=== PATIENT | female | born 1945 | race Caucasian/White ===

== ENCOUNTER → 2020-07-20 | Day surgery (SDC) | payer OTHER ==
[~2020-07-20] VITALS: Ht 152.4 cm; Wt 64.9 kg
[~2020-07-20] MED LIST: BUPIVACAINE 0.25% INJ 50ML VIAL ONE; CALCTAB49 PO; HEPARIN SODIUM (PORCINE) 5000 UNITS/ML 1ML VIAL ONE; LIDOCAINE W/ EPINEPHRINE 1% 20ML VIAL ONE; MIDAZOLAM HCL 1MG/1ML-2 ML VIAL ONE; MULT-1018 PO; ONDANSETRON HCL 4 MG/2 ML VIAL IV PRN; PROPOFOL 10 MG/ML 20 ML IV ONE; ceFAZolin 1GM/50ML 100 ML IV ONE; ePHEDrine SULFATE 50 MG/ML AMP IV PRN; fentaNYL CITRATE 100 MCG/2 ML VL IV PRN; fentaNYL CITRATE 100 MCG/2 ML VL ONE; hydrALAZINE HCL 20 MG/ML VL IV PRN
[2020-07-20 11:45] VITALS: BP 138/47
== END | disposition home or self-care (01) ==
LOC: SUR 07:38
PROVIDERS: ATTEND Surgery
DX: R22.41 Localized swelling, mass and lump, right lower limb (principal); M19.90 Unspecified osteoarthritis, unspecified site; Z90.49 Acquired absence of other specified parts of digestive tract; D17.23 Benign lipomatous neoplasm of skin and subcutaneous tissue of right leg; Z20.828 Contact with and (suspected) exposure to other viral communicable diseases; Z98.890 Other specified postprocedural states; Z79.899 Other long term (current) drug therapy
CPT/HCPCS: 27339; 88304; J0690; J1644; J2704; J3010; J3490; U0003; J2250

== ENCOUNTER 2021-04-15 09:27 | Emergency (ER) | payer OTHER ==
[~2021-04-15] VITALS: Ht 152.4 cm; Wt 63.5 kg
[~2021-04-15 09:27] MED LIST changes: -BUPIVACAINE 0.25% INJ 50ML VIAL ONE; -HEPARIN SODIUM (PORCINE) 5000 UNITS/ML 1ML VIAL ONE; -LIDOCAINE W/ EPINEPHRINE 1% 20ML VIAL ONE; -MIDAZOLAM HCL 1MG/1ML-2 ML VIAL ONE; -ONDANSETRON HCL 4 MG/2 ML VIAL IV PRN; -PROPOFOL 10 MG/ML 20 ML IV ONE; -ceFAZolin 1GM/50ML 100 ML IV ONE; -ePHEDrine SULFATE 50 MG/ML AMP IV PRN; -fentaNYL CITRATE 100 MCG/2 ML VL IV PRN; -fentaNYL CITRATE 100 MCG/2 ML VL ONE; -hydrALAZINE HCL 20 MG/ML VL IV PRN
[2021-04-15 10:32] VITALS: BP 154/68
[2021-04-15] MEDS ORDERED: ACETAMINOPHEN 500 MG TAB PO ONE (11:00)
== END 2021-04-15 11:51 | disposition home or self-care (01) ==
LOC: ER 09:27
DX: S00.83XA Contusion of other part of head, initial encounter (principal); S50.312A Abrasion of left elbow, initial encounter; Z79.899 Other long term (current) drug therapy; W01.0XXA Fall on same level from slipping, tripping and stumbling without subsequent striking against object, initial encounter; Y93.89 Activity, other specified; Y92.89 Other specified places as the place of occurrence of the external cause; Y99.8 Other external cause status
CPT/HCPCS: 70450; 70486

== ENCOUNTER 2023-06-19 06:20 | Inpatient (IN) | payer OTHER ==
[~2023-06-19] VITALS: Ht 152.4 cm; Wt 73.2 kg
[~2023-06-19 06:20] MED LIST changes: +LOSA25TA15 PO
[2023-06-19] MEDS ORDERED: ceFAZolin 1GM/50ML 100 ML IV ONE (06:37)
[2023-06-19] MEDS ORDERED: fentaNYL CITRATE 100 MCG/2 ML VL ONE (07:09)
[2023-06-19] MEDS ORDERED: MORPHINE SULF PF 5 MG/10 ML VIAL ONE (07:09)
[2023-06-19] MEDS ORDERED: PROPOFOL 10 MG/ML 20 ML IV ONE (07:12)
[2023-06-19] MEDS ORDERED: MIDAZOLAM HCL 2MG/2ML 2ml VIAL (1mg/ml) ONE (07:14)
[2023-06-19] MEDS ORDERED: TRANEXAMIC ACID 20 ML ONE (07:30)
[2023-06-19] MEDS ORDERED: KETOROLAC TROMETH 30 MG/ML 1ML VIAL ONE (07:31)
[2023-06-19] MEDS ORDERED: ONDANSETRON HCL 4 MG/2 ML VIAL ONE (08:11)
[2023-06-19] MEDS ORDERED: MEPERIDINE HCL (50 MG/ML) 1 ML VIAL ONE ×2 (08:30→09:26)
[2023-06-19] MEDS ORDERED: ROPIVACAINE 0.5% (5MG/ML) 20ML AMPULE IJ ONE (08:30)
[2023-06-19] MEDS ORDERED: EPINEPHrine HCL 1 MG/1 ML AMP ONE (08:32)
[2023-06-19] MEDS ORDERED: hydrALAZINE HCL 20 MG/ML VL ONE (08:36)
[2023-06-19] MEDS ORDERED: VANCOMYCIN HCL 1000 MG VL ONE (08:40)
[2023-06-19] MEDS ORDERED: BUPIVACAINE 0.5% P/F INJ 10 ML VIAL ONE (09:21)
[2023-06-19] MEDS ORDERED: SODIUM CHLORIDE LOCK 10 ML ONE (09:29)
[2023-06-19] MEDS ORDERED: ACETAMINOPHEN 325 MG TAB PO PRN (10:15)
[2023-06-19] MEDS ORDERED: oxyCODONE HCL 5MG TAB PO PRN (10:15)
[2023-06-19 10:18] VITALS: O2SAT 98
[2023-06-19] MEDS ORDERED: ONDANSETRON HCL 4 MG/2 ML VIAL IV PRN (10:30)
[2023-06-19] MEDS ORDERED: MEPERIDINE HCL (25 MG/ML) 1ML VIAL IV PRN (10:30)
[2023-06-19] MEDS: HYDROmorphone HCL 2 MG/ML VL/or syr IV PRN ×2 (10:43→10:55)
[2023-06-19] MEDS ORDERED: KETOROLAC TROMETH 60MG/2ML VIAL ONE (11:13)
[2023-06-19] MEDS ORDERED: KETOROLAC TROMETH 30 MG/ML 1ML VIAL IV SCH (12:00)
[2023-06-19] MEDS: D5W/LACTATED RINGERS 1,000 ML IV SCH ×2 (12:58→21:04)
[2023-06-19] MEDS: ACETAMINOPHEN 325 MG TAB PO SCH ×2 (13:00→17:23)
[2023-06-19] MEDS: ceFAZolin 2 GM/D5W100ml 100 ML IV SCH ×2 (13:40→22:11)
[2023-06-19] MEDS: oxyCODONE HCL 5MG TAB PO PRN ×2 (16:05→22:12)
[2023-06-19 17:00] VITALS: BP 134/71; PULSE 82; RESP 18; TEMP 97.3; O2SAT 97
[2023-06-19] MEDS: KETOROLAC TROMETH 60MG/2ML VIAL IV SCH (17:23)
[2023-06-19 20:00] VITALS: BP 124/76; PULSE 82; RESP 17; TEMP 97.9; O2SAT 94
[2023-06-19 22:00] VITALS: BP 124/76; PULSE 82; RESP 17; TEMP 97.9; O2SAT 94
[2023-06-19] MEDS: PREGABALIN 25 MG CAP PO SCH (22:12)
[2023-06-20] MEDS: ACETAMINOPHEN 325 MG TAB PO SCH ×3 (00:44→12:09)
[2023-06-20] MEDS: KETOROLAC TROMETH 60MG/2ML VIAL IV SCH ×3 (00:44→12:16)
[2023-06-20] MEDS: oxyCODONE HCL 5MG TAB PO PRN ×2 (04:40→10:21)
[2023-06-20 05:00] VITALS: BP 113/57; PULSE 76; RESP 17; TEMP 97.9; O2SAT 94
[2023-06-20 06:18] LABS: Basophils # (auto) 0 10 ^3/uL (0-0.2); Basophils % (auto) 0.4 % (0.0-2.0); Eosinophils # (auto) 0.3 10 ^3/uL (0-0.8); Eosinophils % (auto) 3.8 % (0.0-7.0); Hematocrit 36.5 % (36.0-46.0); Hemoglobin 12.4 g/dL (12.2-16.2); Lymphocytes # (auto) 1.1 10 ^3/uL (0.4-5.4); Lymphocytes % (auto) 14.1 % (10.0-50.0); Mean Corpuscular Hemoglobin 30.4 pg (28.0-32.0); Mean Corpuscular Volume 89.5 fL (80.0-100.0); Monocytes # (auto) 0.7 10 ^3/uL (0-1.3); Monocytes % (auto) 8.6 % (0.0-12.0); Neutrophils # (auto) 5.9 10 ^3/uL (1.6-8.6); Neutrophils % (auto) 73.1 % (37.0-80.0); Red Blood Cells 4.07 10^6/uL (4.0-5.20); Red Cell Distribution Width 14.1 % (11.8-14.3); White Blood Cell 8.1 10^3/uL (4.4-10.8)
[2023-06-20 06:31] LABS: Chloride 105 mmol/L (98-107); Potassium 4.5 mmol/L (3.5-5.1); Sodium 138 mmol/L (136-145)
[2023-06-20 06:32] LABS: Anion Gap 4 (5-15); Calcium 8.8 mg/dL (8.5-10.1); Carbon Dioxide 29 mmol/L (20-30)
[2023-06-20 06:37] LABS: BUN/Creatinine Ratio 11.8 (10.0-20.0); Blood Urea Nitrogen 9 mg/dL (9-23); Glucose 113 mg/dL (74-106)
[2023-06-20] MEDS: D5W/LACTATED RINGERS 1,000 ML IV SCH ×2 (06:39→16:15)
[2023-06-20 09:00] VITALS: BP 122/53; PULSE 81; RESP 18; O2SAT 93
[2023-06-20] MEDS: PREGABALIN 25 MG CAP PO SCH (09:44)
[2023-06-20] MEDS ORDERED: LOSARTAN POTASSIUM 25 MG TAB PO SCH (10:00)
[2023-06-20] MEDS ORDERED: ASPirin 81 mg TAB PO SCH (10:00)
[2023-06-20 13:00] VITALS: BP 140/55; PULSE 90; RESP 18; TEMP 98; O2SAT 91
== END 2023-06-20 16:50 | disposition home or self-care (01) | DRG 470 ==
LOC: SUR 06:20 → OVERFLOW 10:17 → CENTRAL 11:51
PROVIDERS: ADMIT Orthopaedic Surgery; ATTEND Orthopaedic Surgery
PROC: 0SRC069 Replacement of Right Knee Joint with Oxidized Zirconium on Polyethylene Synthetic Substitute, Cemented, Open Approach (ICD-10-PCS; principal; 2023-06-19 07:47)
DX: M17.11 Unilateral primary osteoarthritis, right knee (principal); I10 Essential (primary) hypertension
CPT/HCPCS: 36415; 73560; 80048; 85025; 86850; 86900; 86901; 93971; 97110; 97116; 97163; 97530; G0378; J0171; J0690; J1885; J2250; J2405; J2704; J3490

== ENCOUNTER 2024-07-17 14:00 | Inpatient (IN) | payer OTHER ==
[~2024-07-17] VITALS: Ht 152.4 cm; Wt 76.6 kg
[~2024-07-17 14:00] MED LIST changes: +LOSA-533 PO; -LOSA25TA15 PO
[2024-07-18 13:19] VITALS: RESP 18
[2024-07-18 13:22] VITALS: BP 144/65; PULSE 88; RESP 20; TEMP 98.6; O2SAT 93
[2024-07-18] MEDS ORDERED: ONDANSETRON HCL 4 MG/2 ML VIAL IV PRN (14:30)
[2024-07-18] MEDS ORDERED: ACETAMINOPHEN 325 MG TAB PO PRN (14:30)
--- NOTE | 2024-07-18 16:17 | DVHHP2 ---
History of Present Illness Reason for Visit: Left knee pain status post mechanical fall found to left patellar # History of Present Illness 79-year-old female with a known history of hypertension, previous history of right total knee arthroplasty who was recently on a cruise in [place] had a mechanical fall history ER with left knee found to have left patellar fracture. Patient was hospitalized in [place] and then transferred as a direct admit. Orthopedics will be consulted. Patient was pulling of left knee pain. Denies any fevers does not any known cardiac history . Cardiovascular: HTN Past Surgical History: Total knee replacement (Right side) Smoke: Quit ALCOHOL: none Drugs: None Domestic Violence: Neg Review of Systems Review of Systems 12 review of system were negative except mentioned above. Allergies: Coded Allergies: NO KNOWN ALLERGIES (Unverified , 07/14/20) Medications Current Medications Medications Dose Ordered Sig/Maggi Route Start Time Stop Time Status Last Admin Dose Admin Sodium Chloride 1,000 ml @ 120 mls/hr Q8H20M IV 07/18/24 14:30 Acetaminophen/ Hydrocodone Bitart 1 tab Q4HP PRN PO 07/18/24 14:30 Ondansetron HCl 4 mg Q4HP PRN IV 07/18/24 14:30 Enoxaparin Sodium 40 mg DAILY SC 07/19/24 10:00 UNV Acetaminophen 650 mg Q6HP PRN PO 07/18/24 14:30 Morphine Sulfate 2 mg Q4HPRN PRN IV 07/18/24 14:30 Losartan Potassium 25 mg DAILY PO 07/19/24 10:00 Exam Vital Signs Vital Signs Date Time Temp Pulse Resp B/P (MAP) Pulse Ox O2 Delivery O2 Flow Rate FiO2 07/18/24 13:22 98.6 88 20 144/65 (91) 93 98.6 07/18/24 13:19 Room Air* 0 21 Exam HEENT pupils are reactive Neck is supple CV is S1-S2 regular rate and rhythm Respiratory valley clear GI posterior bowel sound Extremity no edema 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 1. Acute left patellar fracture status post mechanical fall 2. Left knee pain secondary to 1. 3. Hypertension -admit to med surge, pain meds, DVT GI prophylaxis -nonweightbearing of the left lower extremity until seen by orthopedics -orthopedics consultation. Plan discussed with: Patient My Orders Orders - LITZY GARCIA MD Procedure Category Date Status Time Mrsa Screen ANN 07/18/24 Logged 13:54 Code Status CODE 07/18/24 Transmitted 14:18 2 Gm Sodium Diet DIET 07/18/24 Transmitted Dinner Sodium Chloride 0.9% PHA 07/18/24 In Process 14:30 Hydrocodone-Acet PHA 07/18/24 In Process 5/325mg Tab ([place] 14:30 Ondansetron Hcl PHA 07/18/24 In Process (Zofran) 14:30 Enoxaparin Sodium PHA 07/19/24 Pending (Lovenox) 10:00 Condition: Fair MARY 07/18/24 In Process 14:18 Acetaminophen Tablet PHA 07/18/24 In Process (Tylenol Tablet) 14:30 Morphine Sulfate PHA 07/18/24 In Process Injection 14:30 *Cons[address] Dr[address] Foreman CONS 07/18/24 Transmitted [place] 14:18 Admit ADMIT 07/18/24 Transmitted 14:21 Complete Blood Count LAB 07/19/24 Verified 05:00 Basic Metabolic Panel LAB 07/19/24 Verified 05:00 Losartan Tablet PHA 07/19/24 In Process (Cozaar Tablet) 10:00 Date of Service: Jul 18, 2024 Billing Provider: LITZY GARCIA MD Common Visit Codes: NOT BILLABLE LITZY GARCIA MD Jul 18, 2024 16:17
[2024-07-18] MEDS: SODIUM CHLORIDE 0.9% 1,000 ML IV SCH (16:31)
[2024-07-18] MEDS: ENOXAPARIN SOD 40 MG/0.4 ML SYRINGE SC SCH (16:31)
[2024-07-18 16:37] VITALS: BP 140/61; PULSE 86; RESP 16; TEMP 98.8; O2SAT 95
[2024-07-18 17:02] LABS: Hematocrit 29.9 % (36.0-46.0); Hemoglobin 10.4 g/dL (12.2-16.2); Mean Corpuscular Hemoglobin 30.8 pg (28.0-32.0); Mean Corpuscular Hgb Conc. 34.7 g/dL (32.0-36.0); Mean Corpuscular Volume 88.7 fL (80.0-100.0); Platelet Count (auto) 233 10^3/uL (140-450); Red Blood Cells 3.37 10^6/uL (4.0-5.20); Red Cell Distribution Width 14.2 % (11.8-14.3); White Blood Cell 8.8 10^3/uL (4.4-10.8)
[2024-07-18 17:08] LABS: Basophils % (manual) 0 (0.0-2.0); Blast Cells 0; Eosinophils % (manual) 0 (0-7); Metamyelocytes % 0; Myelocytes % 0; Promyelocytes % 0; Reactive Lymphocytes 0
[2024-07-18 17:12] LABS: Chloride 104 mmol/L (98-107); Potassium 4.7 mmol/L (3.5-5.1); Sodium 136 mmol/L (136-145)
[2024-07-18 17:13] LABS: Anion Gap 5 (5-15); Calcium 9.3 mg/dL (8.7-10.4); Carbon Dioxide 27 mmol/L (20-31)
[2024-07-18 17:18] LABS: BUN/Creatinine Ratio 19.4 (10.0-20.0); Blood Urea Nitrogen 13 mg/dL (9-23); Glucose 141 mg/dL (74-106)
[2024-07-18 18:27] LABS: Band Neutrophils % (manual) 2; Lymphocytes % (manual) 4 (10.0-50.0); Monocytes % (manual) 4 (0-12); Platelet Estimate Adequate
[2024-07-18] MEDS: MORPHINE SULFATE INJ 2 MG/ml SYRG IV PRN (20:47)
[2024-07-18 21:00] VITALS: BP 131/69; PULSE 94; RESP 19; TEMP 98.1; O2SAT 94
[2024-07-19 05:00] VITALS: BP 141/72; PULSE 89; RESP 19; TEMP 97.7; O2SAT 92
[2024-07-19 07:14] LABS: Basophils # (auto) 0 10 ^3/uL (0-0.2); Basophils % (auto) 0.2 % (0.0-2.0); Eosinophils # (auto) 0 10 ^3/uL (0-0.8); Eosinophils % (auto) 0.3 % (0.0-7.0); Hematocrit 25.7 % (36.0-46.0); Hemoglobin 8.8 g/dL (12.2-16.2); Lymphocytes # (auto) 0.9 10 ^3/uL (0.4-5.4); Mean Corpuscular Hemoglobin 30.5 pg (28.0-32.0); Mean Corpuscular Hgb Conc. 34.3 g/dL (32.0-36.0); Monocytes # (auto) 0.8 10 ^3/uL (0-1.3); Neutrophils # (auto) 7.7 10 ^3/uL (1.6-8.6); Neutrophils % (auto) 81.5 % (37.0-80.0); Nucleated Red Blood Cells % 0.1 %; Platelet Count (auto) 229 10^3/uL (140-450); Red Blood Cells 2.88 10^6/uL (4.0-5.20); Red Cell Distribution Width 14.3 % (11.8-14.3); White Blood Cell 9.4 10^3/uL (4.4-10.8)
[2024-07-19 07:17] LABS: Chloride 108 mmol/L (98-107); Potassium 4.8 mmol/L (3.5-5.1); Sodium 139 mmol/L (136-145)
[2024-07-19 07:18] LABS: Anion Gap 4 (5-15); Calcium 8.8 mg/dL (8.7-10.4); Carbon Dioxide 27 mmol/L (20-31)
[2024-07-19 07:23] LABS: Glucose 102 mg/dL (74-106)
[2024-07-19 07:24] LABS: BUN/Creatinine Ratio 32.4 (10.0-20.0); Blood Urea Nitrogen 22 mg/dL (9-23)
[2024-07-19 09:33] VITALS: BP 138/65; PULSE 87; RESP 17; TEMP 97.6; O2SAT 96
[2024-07-19] MEDS: LOSARTAN POTASSIUM 25 MG TAB PO SCH (11:27)
[2024-07-19 13:00] VITALS: BP 146/62; PULSE 85; RESP 17; TEMP 97.6; O2SAT 96
--- NOTE | 2024-07-19 15:06 | DVHINCON2 ---
Date of service: Jul 19, 2024 Reason for Consultation Left patella fracture History of Present Illness 79 yo F sp mechanical fall while in [place] and landed onto left knee with a displaced fracture at left knee. No cp/sob/abd pain/nausea/vomiting/diarrhea. Past Medical History Cardiovascular: HTN Past Surgical History: Total knee replacement (Right side) Family History: Cardiovascular disease G8 FATHER, FHx: melanoma G8 MOTHER, Allergies: Coded Allergies: NO KNOWN ALLERGIES (Unverified , 07/14/20) Home Meds Reported Medications Losartan Potassium (Losartan Potassium) 25 Mg Tab, 25 MG PO DAILY, TAB 06/15/23 Calcium Carbonate (Calcium 600) 600 Mg Tab, 600 MG PO BID, TAB 07/14/20 Multiple Vitamin (Multivitamins) Tab, 1 TAB PO DAILY, #90 TAB 3 Refills 07/14/20 Current Medications Current Medications Medications (Trade) Dose Ordered Sig/Maggi Route PRN Reason Start Time Stop Time Status Last Admin Enoxaparin Sodium (Lovenox) 40 mg Q24H SC 07/18/24 16:30 07/18/24 16:31 Losartan Potassium (Cozaar Tablet) 25 mg DAILY PO 07/19/24 10:00 07/19/24 11:27 Review of Systems denies Vital Signs Vital Signs Date Time Temp Pulse Resp B/P (MAP) Pulse Ox O2 Delivery O2 Flow Rate FiO2 07/19/24 14:18 71 18 146/62 07/19/24 13:00 97.6 96 97.6 07/18/24 20:00 Room Air* 0 21 Physical Exam NAD +swelling at knee Calf soft +TA/GS Labs/Diagnostic Data Labs Test 07/19/24 06:16 07/18/24 16:30 Range/Units White Blood Count 9.4 4.4-10.8 10^3/uL Red Blood Count 2.88 L 4.0-5.20 10^6/uL Hemoglobin 8.8 #L 12.2-16.2 g/dL Hematocrit 25.7 #L 36.0-46.0 % Mean Corpuscular Volume 89.0 80.0-100.0 fL Mean Corpuscular Hemoglobin 30.5 28.0-32.0 pg Mean Corpuscular Hemoglobin Concent 34.3 32.0-36.0 g/dL Red Cell Distribution Width 14.3 11.8-14.3 % Platelet Count 229 140-450 10^3/uL Mean Platelet Volume 7.6 6.9-10.8 fL Neutrophils (%) (Auto) 81.5 H 37.0-80.0 % Lymphocytes (%) (Auto) 10.0 10.0-50.0 % Monocytes (%) (Auto) 8.0 0.0-12.0 % Eosinophils (%) (Auto) 0.3 0.0-7.0 % Basophils (%) (Auto) 0.2 0.0-2.0 % Neutrophils # (Auto) 7.7 1.6-8.6 10 ^3/uL Lymphocytes # (Auto) 0.9 0.4-5.4 10 ^3/uL Monocytes # (Auto) 0.8 0-1.3 10 ^3/uL Eosinophils # (Auto) 0 0-0.8 10 ^3/uL Basophils # (Auto) 0 0-0.2 10 ^3/uL Nucleated Red Blood Cells 0.1 % Sodium Level 139 136-145 mmol/L Potassium Level 4.8 3.5-5.1 mmol/L Chloride Level 108 H 98-107 mmol/L Carbon Dioxide Level 27 20-31 mmol/L Anion Gap 4 L 5-15 Blood Urea Nitrogen 22 9-23 mg/dL Creatinine 0.68 0.550-1.02 mg/dL Glomerular Filtration Rate Calc 89 >90 mL/min BUN/Creatinine Ratio 32.4 H 10.0-20.0 Serum Glucose 102 74-106 mg/dL Calcium Level 8.8 8.7-10.4 mg/dL Differential Total Cells Counted 100.0 100 Neutrophils % (Manual) 90 H 37.0-80.0 Band Neutrophils % (Manual) 2 Lymphocytes % (Manual) 4 L 10.0-50.0 Monocytes % (Manual) 4 0-12 Eosinophils % (Manual) 0 0-7 Basophils % (Manual) 0 0.0-2.0 Metamyelocytes % (manual) 0 Myelocytes % (Manual) 0 Promyelocytes % (Manual) 0 Blast Cells % (Manual) 0 Reactive Lymphocytes 0 Platelet Estimate Adequate Plan/Recommendation 79 yo F with left patella fracture in [place] 1. I had a long and thorough discussion with the patient regarding her condition. Questions for patient answered. I discussed nonop and op treatment. Risks benefits options and alternatives reviewed in depth. Risks include but not exclusive to bleeding infection nerve injury hardware failure nonunion malunion chronic pain blood clots cardiac and pulmonary complications amputation and . Patient understands and wishes to proceed with surgery 2. Plan for open reduction internal fixation of left patella fracture 3. NPO/IVF 4. plan for postop doppler on left leg to rule out DVT for swelling/flight with an extremity fracture Plan discussed with: Patient AMANUEL YANG MD Jul 19, 2024 15:06
--- NOTE | 2024-07-19 15:30 | DVH ---
CLINICAL INDICATION: fracture TECHNIQUE: 2 radiographic views of the left knee were obtained. Comparison: XY R KNEE 2V XRAY on DOS: 06/19/23 FINDINGS/IMPRESSION: There is a fracture of the upper pole of the patella. The fracture fragment is proximal. Patellar fr agment is located 4-5 cm proximal to the patella. The visualized joint space is well maintained. The alignment is anatomical. There is no radiopaque foreign body. HS:Y
--- NOTE | 2024-07-19 15:32 | DVH ---
CHEST RADIOGRAPH Indication:htn Technique: Single frontal view of the chest was obtained Comparison: None FINDINGS: Lines and Tubes: None Lungs: No focal consolidation. Pleura: No effusion. No pneumothorax. Cardiomediastinal contours: Unremarkable Bones: No acute osseous abnormality. IMPRESSION: 1. No acute cardiopulmonary disease. HS:Y
[2024-07-19 15:38] LABS: INR 0.99 (0.9-1.15); Prothrombin Time 10.5 sec (9.3-11.8)
--- NOTE | 2024-07-19 16:36 | DVHPN2 ---
Subjective Patient is complaining of 10/10 pain in the left knee. Patient is also requesting regular diet. 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 Medications Current Medications Medications Dose Ordered Sig/Maggi Route Start Time Stop Time Status Last Admin Dose Admin Sodium Chloride 1,000 ml @ 120 mls/hr Q8H20M IV 07/18/24 14:30 07/19/24 15:48 120 MLS/HR Acetaminophen/ Hydrocodone Bitart 1 tab Q4HP PRN PO 07/18/24 14:30 Ondansetron HCl 4 mg Q4HP PRN IV 07/18/24 14:30 Enoxaparin Sodium 40 mg Q24H SC 07/18/24 16:30 07/19/24 15:46 40 MG Acetaminophen 650 mg Q6HP PRN PO 07/18/24 14:30 Morphine Sulfate 2 mg Q4HPRN PRN IV 07/18/24 14:30 07/19/24 14:18 2 MG Losartan Potassium 25 mg DAILY PO 07/19/24 10:00 07/19/24 11:27 25 MG Laboratory Results Laboratory Tests 07/19/24 06:16 Chemistry Test 07/19/24 06:16 Calcium Level 8.8 mg/dL (8.7-10.4) Coagulation Test 07/19/24 15:10 Prothrombin Time 10.5 sec (9.3-11.8) Prothrombin Time INR 0.99 (0.9-1.15) Microbiology Microbiology Date/Time Source Procedure Growth Status 07/18/24 15:39 Nose MRSA Screen - Final Complete Assessment/Plan Assessment/Plan 79-year-old female with a known history of hypertension who had a mechanical fall while she was on a cruise in [place] , prolonged back has a direct admit. 1. Acute left patellar fracture status post mechanical fall 2. Left knee pain secondary to 1. 3. Hypertension - pain meds, DVT GI prophylaxis -nonweightbearing of the left lower extremity until seen by orthopedics -orthopedics consultation. Plan discussed with: Patient My Orders Orders - LITZY GARCIA MD Procedure Category Date Status Time Regular Diet DIET 07/19/24 Transmitted Dinner Date of Service: Jul 19, 2024 Billing Provider: LITZY GARCIA MD Common Visit Codes: NOT BILLABLE LITZY GARCIA MD Jul 19, 2024 16:36
[2024-07-19 17:59] VITALS: BP 143/66; PULSE 80; RESP 18; TEMP 97.8; O2SAT 98
[2024-07-19 21:00] VITALS: BP 128/52; PULSE 87; RESP 18; TEMP 97.9; O2SAT 99
[2024-07-19] MEDS: HYDROcodone-ACET 5/325MG TAB PO PRN (23:40)
[2024-07-20] VITALS (7 sets, daily range): BP systolic 151–182; BP diastolic 63–72; PULSE 81–97; RESP 17–21; TEMP 97.4–98.3; O2SAT 94–98
[2024-07-20] MEDS ORDERED: MIDAZOLAM HCL 2MG/2ML 2ml VIAL (1mg/ml) ONE (07:06)
[2024-07-20] MEDS ORDERED: fentaNYL CITRATE 100 MCG/2 ML VL ONE (07:06)
[2024-07-20] MEDS ORDERED: PROPOFOL 10 MG/ML 20 ML IV ONE (07:12)
[2024-07-20] MEDS: ceFAZolin 1GM/50ML 100 ML IV ONE (07:30)
[2024-07-20] MEDS ORDERED: PHENYLEPHRINE HCL 10 MG/ML VL ONE (07:46)
[2024-07-20] MEDS ORDERED: ePHEDrine SULFATE 50 MG/ML AMP ONE (07:47)
[2024-07-20] MEDS: VANCOMYCIN HCL 1000 MG VL ONE (07:56)
[2024-07-20] MEDS: BUPIVACAINE 0.25% INJ 50ML VIAL ONE (08:28)
--- NOTE | 2024-07-20 09:00 | DVHOP2 ---
Operative Report - 2 Report Details Date: 07/20/24 Preop Diagnosis: Left knee patella fracture, medial and lateral retinaculum tear Postop Diagnosis: as above Surgeon: Ahsan Elkins MD Anesthesiologist: Stephanie SHARIF Anesthesia: Regional Implant: Arthrex small suture plate with 6 locking screws Consent: The patient was informed of the risks and benefits of the procedure. These include but are not limited to complications of anesthesia, postoperative infection, incomplete relief of symptoms, recurrence of symptoms, damage to blood vessels, nerves and tendons, deep venous thrombosis, pulmonary embolism and possible need for repeat surgery in the future. Estimated Blood Loss: 50 cc Indications for Surgery: displaced left patella fracture; hx of injury while in [place] and patient airlifted to hospital Name of Procedure Performed 1. Open reduction internal fixation of left patella fracture; intraop fluoro Procedure Details Procedure Details: INDICATION: This patient has failed non-operative treatments for patella fracture and is now indicated for patella fixation. Preoperatively in the [facility] area, I had a long discussion with the patient regarding the plan, the expected outcome, the risks, benefits, and alternatives of surgery. The risks include, but are not limited to, infection (which may require future surgery and removal of implants) , bleeding (which may require a transfusion), damage to nerves, arteries, veins, tendons, muscles and other adjacent structures. Also discussed the possibilities of intraoperative fractures, implant loosening, heterotopic bone formation, and revision for variety of reasons, and medical complications etc. This was discussed at length and consent has been obtained. DESCRIPTION OF PROCEDURE: In the preoperative holding area, the consent was reviewed and the appropriate extremity was verified by the patient and marked with my initials. The patient was then transferred to the operating theatre. Appropriate anesthesia was induced. All bony prominences were well padded. A time out was performed verifying the side and site of surgery according to standard protocol. Preoperative antibiotics were given 10 minutes prior to tourniquet inflation. Tranexamic was given. A well padded thigh tourniquet was applied. The extremity was then prepped and draped in the usual sterile fashion. The extremity was eleveated and the tourniquet was inflated. We then made a mid-line incision, which we continued to the underlying capsular tissue. Patient had a large hematoma with evacuation of 200 cc of blood clot. We then irrigated the wound and bony surfaces. Patient had a small proximal piece so we decided to do plate fixation. Under fluoro fracture was reduced using a clamp. Using guide, proper plate measured. Under fluoro we placed plate and 6 locking screws. I then did 3 fiber wire suture plate fixation of bone to the plate. I then fixed the medial and lateral retinaculum with fiber wire. We released the tourniquet and achieved hemostasis where necessary. A dilute betadine solution (17.5mL in 500mL saline) was used to wash the joint and left to sit for 3 minutes. This was then irrigated out with copious amounts of pulse lavage. We sprinkled 1g vancomycin powder below the fascia and 1g above the fas mattie. We copiously irrigated the knee. No gapping noted when knee taken from 0-45 deg of flexion. We closed the subcutaneous tissue with Vicryl suture and re- approximated the skin with [place], sylk and prevena dressing. We verified all lower extremity compartments were soft and compressible and that we had intact distal pulses. We wrapped the extremity in sterile Webr[place] and ashely bandage and placed the patient in a knee immobilizer. The patient was transferred to the recovery room in stable condition. Postop Plan: 1. WBAT in knee immobilizer with walker 2. Pain control 3. DVT ppx 4. Ancef x 24 hours 5. dc planning for SNF 6. follow up with orthopedics in 2 weeks Condition Good Disposition Still a Patient AHSAN ELKINS MD Jul 20, 2024 09:00
--- NOTE | 2024-07-20 09:22 | DVH ---
HISTORY: ORIF LEFT PATELLA TECHNICAL DATA: 2 intraoperative fluoroscopic spot images were obtained of the knee. COMPARISON: XY L KNEE 2V XRAY on DOS: 07/19/24, FINDINGS/IMPRESSION: C-arm fluoroscopic images were obtained for anatomic localization. The images are of low resolution b ut demonstrate interval fixation of patellar fracture . Total fluoroscopy time was 18.6 seconds. ]Ple ase see the operative report for further details.
--- NOTE | 2024-07-20 09:23 | DVH ---
C-ARM FLUOROSCOPY: PROCEDURE: ORIF left patella FLUOROSCOPY TIME: 18.6 seconds DAP: 0.63 mgy FINDINGS: Spot intraoperative C arm radiographs demonstrating interval fixation of patellar fracture. IMPRESSION: 1. Please refer to surgical report for detailed findings.
--- NOTE | 2024-07-20 11:39 | DVH ---
HISTORY: fracture hx COMPARISON: None TECHNIQUE: Duplex Doppler evaluation of the deep venous system of the lower extremity from the common femoral veins, superficial femoral vein, great saphenous vein, deep femoral vein, popliteal vein, an d calf veins, including color Doppler and spectral/pulsed waveform analysis, was performed. FINDINGS: Most of the sonographic images were labeled to be right lower extremity but are presumed to be of the left lower extremity as noted in the tech worksheet. Left: - Common femoral vein: Compressible - Deep femoral vein: Compressible - Femoral vein: Compressible - Popliteal vein: Not visualized due to wrapping - Posterior tibial vein: Waveforms present - Other: Nothing IMPRESSION: 1. No left lower extremity deep venous thrombosis. Popliteal vein not visualized due to wrapping.
[2024-07-20] MEDS: KETOROLAC TROMETH 30 MG/ML 1ML VIAL IV ONE (13:09)
[2024-07-20] MEDS: ceFAZolin 2 GM/D5W50ml 50 ML IV SCH (15:08)
--- NOTE | 2024-07-20 16:07 | DVHPN2 ---
Subjective Patient is complaining of 10/10 pain in the left knee. Patient is status post open reduction and internal fixation of left patella fracture. Reviewed: Care Plan Changes from previous H/P or p: No Changes Objective Vitals Vital Signs Date Time Temp Pulse Resp B/P (MAP) Pulse Ox O2 Delivery O2 Flow Rate FiO2 07/20/24 15:27 89 18 153/68 07/20/24 13:00 98.0 94 98.0 07/20/24 08:42 Room Air 07/19/24 20:00 0 21 Intake/Output Intake and Output 07/20/24 07:00 Intake Total 2805 ml Balance 2805 ml Intake Oral 885 ml IV Total 1920 ml # Voids 8 # Bowel Movements 1 Exam HEENT pupils are reactive Neck is supple CV is S1-S2 regular rate and rhythm Respiratory are clear GI positive bowel sound Extremity no edema PET TRAINER no motor deficit except left lower extremity can not be tested because of recent left patellar fracture. Medications Current Medications Medications Dose Ordered Sig/Maggi Route Start Time Stop Time Status Last Admin Dose Admin Sodium Chloride 1,000 ml @ 120 mls/hr Q8H20M IV 07/18/24 14:30 07/20/24 11:21 120 MLS/HR Acetaminophen/ Hydrocodone Bitart 1 tab Q4HP PRN PO 07/18/24 14:30 07/20/24 15:42 1 TAB Ondansetron HCl 4 mg Q4HP PRN IV 07/18/24 14:30 Enoxaparin Sodium 40 mg Q24H SC 07/18/24 16:30 07/19/24 15:46 40 MG Acetaminophen 650 mg Q6HP PRN PO 07/18/24 14:30 Morphine Sulfate 2 mg Q4HPRN PRN IV 07/18/24 14:30 07/20/24 15:27 2 MG Losartan Potassium 25 mg DAILY PO 07/19/24 10:00 07/20/24 11:17 25 MG Cefazolin Sodium/ Dextrose 50 ml @ 50 mls/hr Q8HR IV 07/20/24 14:00 07/21/24 06:59 07/20/24 15:08 50 MLS/HR Laboratory Results Laboratory Tests 07/19/24 06:16 Microbiology Microbiology Date/Time Source Procedure Growth Status 07/18/24 15:39 Nose MRSA Screen - Final Complete Assessment/Plan Assessment/Plan 79-year-old female with a known history of hypertension who had a mechanical fall while she was on a cruise in [place] 1. Acute left patellar fracture status post mechanical fall status post open reduction and internal fixation 2. Left knee pain secondary to 1. 3. Hypertension - pain meds, DVT GI prophylaxis -nonweightbearing of the left lower extremity until for now -preschool type evaluation and treatment. Plan discussed with: Patient My Orders Orders - LITZY GARCIA MD Procedure Category Date Status Time L Knee 2v Xray XY 07/20/24 Resulted 08:29 C Arm Fluoroscopy Up XY 07/20/24 Resulted To 60min 08:30 Date of Service: Jul 20, 2024 Billing Provider: LITZY GARCIA MD Common Visit Codes: NOT BILLABLE LITZY GARCIA MD Jul 20, 2024 16:07
[2024-07-20] MEDS: MORPHINE SULFATE INJ 2 MG/ml SYRG IV PRN (21:18)
[2024-07-21] VITALS (8 sets, daily range): BP systolic 142–176; BP diastolic 43–76; PULSE 88–93; RESP 16–19; TEMP 98–99.5; O2SAT 93–96
--- NOTE | 2024-07-21 16:30 | DVHPN2 ---
Subjective Patient is complaining of 10/10 pain in the left knee. Patient is status post open reduction and internal fixation of left patella fracture. 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 Medications Current Medications Medications Dose Ordered Sig/Maggi Route Start Time Stop Time Status Last Admin Dose Admin Sodium Chloride 1,000 ml @ 120 mls/hr Q8H20M IV 07/18/24 14:30 07/21/24 02:30 120 MLS/HR Acetaminophen/ Hydrocodone Bitart 1 tab Q4HP PRN PO 07/18/24 14:30 07/21/24 11:09 1 TAB Ondansetron HCl 4 mg Q4HP PRN IV 07/18/24 14:30 Enoxaparin Sodium 40 mg Q24H SC 07/18/24 16:30 07/20/24 18:28 40 MG Acetaminophen 650 mg Q6HP PRN PO 07/18/24 14:30 Losartan Potassium 25 mg DAILY PO 07/19/24 10:00 07/21/24 09:55 25 MG Morphine Sulfate 2 mg Q3HP PRN IV 07/20/24 18:17 07/21/24 16:07 2 MG Laboratory Results Laboratory Tests 07/19/24 06:16 Microbiology Microbiology Date/Time Source Procedure Growth Status 07/18/24 15:39 Nose MRSA Screen - Final Complete Assessment/Plan Assessment/Plan 79-year-old female with a known history of hypertension who had a mechanical fall while she was on a cruise in [place] 1. Acute left patellar fracture status post mechanical fall status post open reduction and internal fixation 2. Left knee pain secondary to 1. 3. Hypertension - pain meds, DVT GI prophylaxis -weight-bearing of left lower extremity as tolerated -physical therapy evaluation and treatment. Plan discussed with: Patient My Orders Orders - LITZY GARCIA MD Procedure Category Date Status Time Morphine Sulfate PHA 07/20/24 In Process Injection 18:17 Date of Service: Jul 21, 2024 Billing Provider: LITZY GARCIA MD Common Visit Codes: NOT BILLABLE LITZY GARCIA MD Jul 21, 2024 16:30
[2024-07-22] VITALS (8 sets, daily range): BP systolic 126–151; BP diastolic 50–65; PULSE 72–98; RESP 17–20; TEMP 97.6–98.8; O2SAT 96–100
[2024-07-22] MEDS ORDERED: HYDR-4902 PO (16:55)
[2024-07-22] MEDS ORDERED: NALO4SPR2 (16:55)
[2024-07-22] MEDS ORDERED: ASPI-543 PO (16:55)
--- NOTE | 2024-07-22 19:27 | DVHDS2 ---
Discharge Summary Date of Admission Jul 18, 2024 at 12:50 Date of Discharge: Jul 22, 2024 Labs/Diagnostic Data: Laboratory Results Test 07/19/24 15:10 07/19/24 06:16 07/18/24 16:30 Prothrombin Time 10.5 sec (9.3-11.8) Prothrombin Time INR 0.99 (0.9-1.15) White Blood Count 9.4 10^3/uL (4.4-10.8) Red Blood Count 2.88 10^6/uL (4.0-5.20) Hemoglobin 8.8 g/dL (12.2-16.2) Hematocrit 25.7 % (36.0-46.0) Mean Corpuscular Volume 89.0 fL (80.0-100.0) Mean Corpuscular Hemoglobin 30.5 pg (28.0-32.0) Mean Corpuscular Hemoglobin Concent 34.3 g/dL (32.0-36.0) Red Cell Distribution Width 14.3 % (11.8-14.3) Platelet Count 229 10^3/uL (140-450) Mean Platelet Volume 7.6 fL (6.9-10.8) Neutrophils (%) (Auto) 81.5 % (37.0-80.0) Lymphocytes (%) (Auto) 10.0 % (10.0-50.0) Monocytes (%) (Auto) 8.0 % (0.0-12.0) Eosinophils (%) (Auto) 0.3 % (0.0-7.0) Basophils (%) (Auto) 0.2 % (0.0-2.0) Neutrophils # (Auto) 7.7 10 ^3/uL (1.6-8.6) Lymphocytes # (Auto) 0.9 10 ^3/uL (0.4-5.4) Monocytes # (Auto) 0.8 10 ^3/uL (0-1.3) Eosinophils # (Auto) 0 10 ^3/uL (0-0.8) Basophils # (Auto) 0 10 ^3/uL (0-0.2) Nucleated Red Blood Cells 0.1 % Sodium Level 139 mmol/L (136-145) Potassium Level 4.8 mmol/L (3.5-5.1) Chloride Level 108 mmol/L (98-107) Carbon Dioxide Level 27 mmol/L (20-31) Anion Gap 4 (5-15) Blood Urea Nitrogen 22 mg/dL (9-23) Creatinine 0.68 mg/dL (0.550-1.02) Glomerular Filtration Rate Calc 89 mL/min (>90) BUN/Creatinine Ratio 32.4 (10.0-20.0) Serum Glucose 102 mg/dL (74-106) Calcium Level 8.8 mg/dL (8.7-10.4) Differential Total Cells Counted 100.0 (100) Neutrophils % (Manual) 90 (37.0-80.0) Band Neutrophils % (Manual) 2 Lymphocytes % (Manual) 4 (10.0-50.0) Monocytes % (Manual) 4 (0-12) Eosinophils % (Manual) 0 (0-7) Basophils % (Manual) 0 (0.0-2.0) Metamyelocytes % (manual) 0 Myelocytes % (Manual) 0 Promyelocytes % (Manual) 0 Blast Cells % (Manual) 0 Reactive Lymphocytes 0 Platelet Estimate Adequate Other Laboratory Tests 07/19/24 06:16 Brief Hx & Hospital Course: 79-year-old female with a known history of hypertension who had a mechanical fall while she was on a cruise in [place] . Patient sustained left talar fracture status post mechanical fall. Patient underwent open reduction and internal fixation of the left tibial fracture. Postprocedure the patient did. Eval. Patient is going to need discharge home with the home has home safety evaluation home PT and home DME. Please follow up with Dr. Ahsan Eklins in 1-2 weeks. Condition at Discharge: Stable Final Diagnosis/Problems List 79-year-old female with a known history of hypertension who had a mechanical fall while she was on a cruise in [place] 1. Acute left patellar fracture status post mechanical fall status post open reduction and internal fixation 2. Left knee pain secondary to 1. 3. Hypertension - pain meds, DVT GI p Discharge Disposition: Home with Health Services SNF Discharge Will this Physician continue t: No Discharge Instruct/Medications Diet: Cardiac 2g Na,low cholest Activity: See Comment Activity comment: Weight-bearing as tolerated on left lower extremity Follow Up/Referral: Follow up with PCP in 1-2 weeks Follow up with Dr. Ahsan Elkins in 1-2 weeks Medications: Casper, Narcan, aspirin as prescribed Discharge Statement: "Patient was advised to return to the ER or call 911 if any headaches, dizziness, shortness of breath, chest pain, abdominal pain, bleeding, fevers, or worsening of medical condition. Patient was counseled about treatment plan, medications, possible side effects, patientverbalized understanding. All questions were answered to the best of my ability. This discharge took greater then 30 minutes in planning, reviewing documentation, counseling the patient, and discussing with other team members." ASSESSMENT ASSESSMENT Assessment 79-year-old female with a known history of hypertension who had a mechanical fall while she was on a cruise in [place] 1. Acute left patellar fracture status post mechanical fall status post open reduction and internal fixation 2. Left knee pain secondary to 1. 3. Hypertension - pain meds, DVT GI p Date of Service: Jul 22, 2024 Billing Provider: LITZY GARCIA MD Common Visit Codes: NOT BILLABLE LITZY GARCIA MD Jul 22, 2024 19:27
[2024-07-23 01:00] VITALS: BP 115/57; PULSE 88; RESP 22; TEMP 98; O2SAT 97
[2024-07-23 05:00] VITALS: BP 119/53; PULSE 83; RESP 20; TEMP 98.5; O2SAT 98
[2024-07-23 08:00] VITALS: PULSE 78; RESP 18; O2SAT 97
[2024-07-23 09:05] VITALS: BP 131/64; PULSE 78; RESP 16; TEMP 98.1; O2SAT 97
[2024-07-23 09:35] VITALS: BP 131/64; PULSE 78; RESP 18; TEMP 36.7
== END 2024-07-23 12:10 | disposition home health service (06) | DRG 517 ==
LOC: WEST WING 07-18 12:50
PROVIDERS: ADMIT Internal Medicine; ATTEND Internal Medicine
PROC: 0QSF04Z Reposition Left Patella with Internal Fixation Device, Open Approach (ICD-10-PCS; principal; 2024-07-20 07:24)
DX: S82.092A Other fracture of left patella, initial encounter for closed fracture (principal); I10 Essential (primary) hypertension; S92.102A Unspecified fracture of left talus, initial encounter for closed fracture; Z96.651 Presence of right artificial knee joint; Z80.8 Family history of malignant neoplasm of other organs or systems; Z82.49 Family history of ischemic heart disease and other diseases of the circulatory system; W18.39XA Other fall on same level, initial encounter; Y93.89 Activity, other specified; Y92.89 Other specified places as the place of occurrence of the external cause; Y99.8 Other external cause status
CPT/HCPCS: 36415; 71045; 73560; 76000; 80048; 85007; 85025; 85027; 85610; 87081; 93971; 97110; 97116; 97163; 97530; G0378; J1885; J2250; J2704; J3490

== ENCOUNTER 2025-01-19 07:57 | Inpatient (IN) | payer MEDICARE, OTHER ==
[~2025-01-19] VITALS: Ht 152.4 cm; Wt 76.8 kg
[2025-01-19] VITALS (10 sets, daily range): BP systolic 90–113; BP diastolic 53–70; PULSE 60–94; RESP 10–20; TEMP 98.6; O2SAT 95–98
[~2025-01-19 07:57] MED LIST changes: +ASPI-543 PO; +GLUC750T29 PO; +NALO4SPR2; +VITA200C27 PO
[2025-01-19] MEDS: ceFAZolin 2 GM/D5W50ml 50 ML IV ONE (09:27)
[2025-01-19] MEDS: CELECOXIB 100 MG CAP PO ONE (10:16)
[2025-01-19] MEDS: ACETAMINOPHEN IV 1000 MG/100ML (10MG/ML) IV ONE (10:16)
[2025-01-19] MEDS: PREGABALIN CAPSULE 75 MG CAP PO ONE (10:16)
[2025-01-19] MEDS ORDERED: PROPOFOL 10 MG/ML 20 ML IV ONE (10:36)
[2025-01-19] MEDS ORDERED: MIDAZOLAM HCL 2MG/2ML 2ml VIAL (1mg/ml) ONE (10:36)
[2025-01-19] MEDS ORDERED: GLYCOPYRROLATE 0.2 MG/ML 1ML VIAL ONE (10:36)
[2025-01-19] MEDS ORDERED: KETAMINE 50mg/ML 1ml syringe ONE (10:36)
[2025-01-19] MEDS ORDERED: ONDANSETRON HCL 4 MG/2 ML VIAL ONE (10:36)
[2025-01-19] MEDS ORDERED: ePHEDrine SULFATE 50 MG/ML AMP ONE (10:36)
[2025-01-19] MEDS ORDERED: MORPHINE SULF PF 5 MG/10 ML VIAL ONE (10:36)
[2025-01-19] MEDS ORDERED: fentaNYL CITRATE 100 MCG/2 ML VL ONE (10:36)
[2025-01-19] MEDS: CEFEPIME 1GM/ 50ML 50 ML IV ONE (11:15)
[2025-01-19] MEDS: TRANEXAMIC ACID 20 ML ONE (11:15)
[2025-01-19] MEDS: BUPIVACAINE HCL 50 ML ONE (12:01)
[2025-01-19] MEDS: VANCOMYCIN HCL 1000 MG VL ONE (12:02)
[2025-01-19] MEDS: BUPIVACAINE 0.5% INJ 50ML VIAL IJ ONE (13:02)
[2025-01-19] MEDS ORDERED: MORPHINE SULFATE INJ 2 MG/ml SYRG IV PRN (13:30)
[2025-01-19] MEDS ORDERED: NALOXONE HCL 0.4 MG/ML VIAL IV PRN (13:30)
[2025-01-19] MEDS ORDERED: DexAMETHasone SOD PHOS 10MG/1ML VIAL INJ IV PRN (13:30)
[2025-01-19] MEDS ORDERED: HYDROmorphone HCL 2 MG/ML VL/or syr IV PRN (13:30)
[2025-01-19] MEDS ORDERED: diphenhdrAMINE HCL 50 MG/1 ML VL IV PRN (13:30)
[2025-01-19] MEDS ORDERED: ACETAMINOPHEN 325 MG TAB PO PRN (13:30)
[2025-01-19] MEDS: LACTATED RINGER'S 1,000 ML IV SCH (13:30)
[2025-01-19] MEDS ORDERED: ONDANSETRON HCL 4 MG/2 ML VIAL IV PRN ×2 (13:30)
[2025-01-19] MEDS ORDERED: NITROGLYCERIN 0.4 MG SL TAB SL PRN (13:30)
[2025-01-19] MEDS: ceFAZolin 1GM/50ML 50 ML IV SCH (13:30)
[2025-01-19] MEDS ORDERED: KETOROLAC TROMETH 30 MG/ML 1ML VIAL IV PRN (13:30)
--- NOTE | 2025-01-19 15:24 | DVH ---
CLINICAL INDICATION: Pain; S/P SURGERY TECHNIQUE: 3 radiographic views of the left knee were obtained. Comparison: XY L KNEE 2V XRAY on DOS: 07/20/24, XY L KNEE 2V XRAY on DOS: 07/19/24, XY R KNEE 2V XRAY on DOS: 06/19/23 FINDINGS/IMPRESSION: Status post left knee arthroplasty with postsurgical changes visualized
--- NOTE | 2025-01-19 16:52 | DVHINCON2 ---
Date Seen: January 19, 2025 Family History: Cardiovascular disease G8 FATHER, FHx: melanoma G8 MOTHER, Allergies: Coded Allergies: NO KNOWN ALLERGIES (Unverified , 07/14/20) Home Meds Active Scripts Aspirin (Aspir-Low) 81 Mg Tab, 81 MG PO BIDWM for 14 Days, #28 TAB Prov:LITZY GARCIA MD 07/22/24 Naloxone HCl (Narcan) 4 Mg/0.1 Ml Spr, 4 MG NA GYN, #2 SPRAY Prov:LITZY GARCIA MD 07/22/24 Reported Medications Tocopheryl Acetate, Dl-Alpha ( (Vitamin E) 90 Mg Cap, 90 MG PO DAILY, CAP 01/15/25 Glucosamine Hydrochloride (GLUCOSAMINE) 750 Mg Tab, 750 MG PO DAILY, TAB 01/15/25 Losartan Potassium (Losartan Potassium) 25 Mg Tab, 25 MG PO DAILY, TAB 06/15/23 Calcium Carbonate (Calcium 600) 600 Mg Tab, 600 MG PO BID, TAB 07/14/20 Multiple Vitamin (Multivitamins) Tab, 1 TAB PO DAILY, #90 TAB 3 Refills 07/14/20 Current Medications Current Medications Medications (Trade) Dose Ordered Sig/Maggi Route PRN Reason Start Time Stop Time Status Last Admin Diphenhydramine HCl (Benadryl Injection) 25 mg Q4HP PRN IV FOR ITCHING 01/19/25 13:30 Ondansetron HCl (Zofran) 4 mg Q4HP PRN IV NAUSEA / VOMITING 01/19/25 13:30 Naloxone HCl (Narcan) 0.2 mg Q5M PRN IV For respirations < than 10/min 01/19/25 13:30 01/19/25 14:16 DC Dexamethasone Sodium Phosphate (Decadron Injection) 10 mg GYN PRN IV FOR ITCHING 01/19/25 13:30 01/19/25 14:18 DC Ketorolac Tromethamine (Toradol Injection) 15 mg Q6HP PRN IV MODERATE PAIN (4-6 PAIN SCALE) 01/19/25 13:30 01/24/25 13:29 Lactated Ringer's 1,000 ml @ 100 mls/hr Q10H IV 01/19/25 13:30 01/19/25 13:30 Cefazolin Sodium 50 ml @ 50 mls/hr Q6H IV 01/19/25 13:30 01/20/25 02:29 01/19/25 13:30 Acetaminophen (Tylenol Tablet) 650 mg Q6HP PRN PO MILD PAIN OR TEMP >101 01/19/25 13:30 Oxycodone/ Acetaminophen (Percocet 5/ 325MG Tablet) 1 tab Q4HP PRN PO MODERATE PAIN 01/19/25 13:30 Hydromorphone HCl (Dilaudid Injection) 1 mg Q2HP PRN IV SEVERE PAIN (7-10 PAIN SCALE) 01/19/25 13:30 Ondansetron HCl (Zofran) 4 mg Q6HP PRN IV NAUSEA / VOMITING 01/19/25 13:30 01/19/25 14:17 DC Docusate Sodium (Colace Capsule) 100 mg Q12HR PO 01/19/25 22:00 Enoxaparin Sodium (Lovenox) 30 mg Q12HR SC 01/19/25 22:00 UNV Nitroglycerin (Ntrostat Sublingual) 0.4 mg Q5MINP PRN SL FOR CHEST PAIN 01/19/25 13:30 Morphine Sulfate 2 mg Q30M PRN IV FOR CHEST PAIN 01/19/25 13:30 Vital Signs Vital Signs Date Time Temp Pulse Resp B/P (MAP) Pulse Ox O2 Delivery O2 Flow Rate FiO2 01/19/25 16:00 71 9 100/46 (64) 94 01/19/25 13:25 Nasal Cannula 2.0 01/19/25 13:15 98.2 98.2 LITZY GARCIA MD January 19, 2025 16:52
[2025-01-19] MEDS: DOCUSATE SOD 100 MG CAP PO SCH (22:00)
[2025-01-20] VITALS (26 sets, daily range): BP systolic 84–133; BP diastolic 42–110; PULSE 57–85; RESP 16–22; TEMP 97.7–98.4; O2SAT 90–100
[2025-01-20] MEDS: OXYCODONE W/ ACETAMINOPHEN 5/325MG TABLET PO PRN (05:32)
--- NOTE | 2025-01-20 06:56 | DVHOP2 ---
Operative Report - 2 Report Details Date: 01/19/25 Preop Diagnosis: Left knee osteoarthritis, history of patella fracture Postop Diagnosis: Left knee osteoarthritis, history of patella fracture Surgeon: Ahsan Yang MD Buckle Attacher: Herb HAWTHORNE Anesthesiologist: Prateek SHARIF Anesthesia: Regional Implant: [employer] Cemented Journey II See implant log for sizes no patella replacement Consent: The patient was informed of the risks and benefits of the procedure. These include but are not limited to complications of anesthesia, postoperative infection, incomplete relief of symptoms, recurrence of symptoms, damage to blood vessels, nerves and tendons, deep venous thrombosis, pulmonary embolism and possible need for repeat surgery in the future. Estimated Blood Loss: 50 cc Indications for Surgery: end stage left knee osteoarthritis, hx of left patella fracture s/p ORIF Name of Procedure Performed Left total knee arthroplasty using computer navigation Procedure Details Procedure Details: FINDINGS: degenerative disease with grade IV changes with valgus deformity, patella bone superior aspect but tendon intact INDICATION: This patient has failed non-operative treatments for knee arthritis and is now indicated for a total knee replacement. Preoperatively in the waiting area as well as in the office, I had a long discussion with the patient regarding the plan, the expected outcome, the risks, benefits, and alternatives of surgery. The risks include, but are not limited to, infection (which may require future surgery and removal of implants) , bleeding (which may require a transfusion), damage to nerves, arteries, veins, tendons, muscles and other adjacent structures. Also discussed the possibilities of intraoperative fractures, implant loosening, heterotopic bone formation, and revision for variety of reasons, and medical complications etc. This was discussed at length and consent has been obtained. DESCRIPTION OF PROCEDURE: In the preoperative holding area, the consent was reviewed and the appropriate extremity was verified by the patient and marked with my initials. The patient was then transferred to the operating theatre. Appropriate anesthesia was induced. All bony prominences were well padded. A time out was performed verifying the side and site of surgery according to standard protocol. Preoperative antibiotics were given 10 minutes prior to tourniquet inflation. Tranexamic was given. A well padded thigh tourniquet was applied. The extremity was then prepped and draped in the usual sterile fashion. The extremity was exsanguinated and the tourniquet was inflated. We then made a mid-line incision, which we continued to the underlying capsular tissue. We performed a medial parapatellar arthrotomy. We periosteally exposed the proximal tibia, excised the anterior fat pad and synovium from the distal aspect of the femur. We then subluxed the patella and brought the knee up into flexion. The lateral meniscus, ACL, and PCL were released. We used the appropriate guide with attached computer navigation to secure the distal femoral cutting block to the femur with pins and completed the distal femoral cut in 0 degrees to the mechanical axis with an oscillating saw. We removed the distal femoral cutting block and turned our attention to the tibia. We used the extramedullary tibial alignment guide with computer navigation to secure the proximal tibial cutting block to the tibia with pins, setting it for a 1mm cut from the more involved side, medially and completed the proximal tibial cut. We then used the spacer block and alignment maria de jesus to check the varus- valgus angle of our cuts and the extension gap. We marked our femoral anatomy, including Dupage's line and the epicondylar axis. Using that as a rotational guide, we used the sizing guide to size our femur properly, using a stylus to ensure there would be no notching. We then used the AP cutting guide to make our anterior and posterior cuts and chamfer cuts with an oscillating saw. We again checked the flexion and extension gaps and coronal balancing. Next, we sized our tibia and secured a baseplate with appropriate rotation with pins. We placed a trial femur in position and completed preparation of the notch with reamers and box osteotome and placed a trial notch in position. We used trials to choose our liner size and then placed the liner in place and reduced the knee . We then placed a trial button in place. At this point, we checked our seven parameters: 1) Limb alignment 2) Extension 3) Flexion against gravity 4) Flexion stability 5) Varus-valgus balancing 6) Component rotation 7) Patella tracking We were satisfied with these and removed all trials with the exception of the baseplate. We completed preparation of the tibia with the appropriate reamer and keel impactor and then removed the baseplate. We placed a bone plug in the distal femur and then irrigated and dried all bony surfaces and injected our pain cocktail. Cement with antibiotics was hand-mixed on the back table. We thumb impacted cement into the proximal tibia, distal femur impacted our tibial, femoral components into position. Excess cement was removed with curettes. We impacted our liner and reduced the knee and held it with axial loading until all cement hardened. We did a paula-articular cocktail block Once all cement had hardened, we brought the knee back up into flexion and used an osteotome to remove excess cement. We released the tourniquet and achieved hemostasis where necessary. A dilute betadine solution (17.5mL in 500mL saline) was used to wash the joint and left to sit for 3 minutes. This was then irriga miles out with copious amounts of pulse lavage. We sprinkled 1g vancomycin powder below the fascia and 1g above the fascia. We copiously irrigated the knee. We re-checked our seven parameters. We closed our capsular incision with a PDS style suture. We irrigated further. We closed the subcutaneous tissue with Vicryl suture and re-approximated the skin with Juvencio. We verified all lower extremity compartments were soft and compressible and that we had intact distal pulses. We wrapped the extremity in sterile Webril and ashely bandage. The patient was transferred to the recovery room in stable condition. Condition Good Disposition Still a Patient AHSAN YANG MD January 20, 2025 06:56
[2025-01-20 07:21] LABS: Basophils # (auto) 0 10 ^3/uL (0-0.2); Basophils % (auto) 0.3 % (0.0-2.0); Eosinophils # (auto) 0.3 10 ^3/uL (0-0.8); Eosinophils % (auto) 5.4 % (0.0-7.0); Hematocrit 37.1 % (36.0-46.0); Hemoglobin 12.2 g/dL (12.2-16.2); Lymphocytes # (auto) 0.5 10 ^3/uL (0.4-5.4); Mean Corpuscular Hemoglobin 28.9 pg (28.0-32.0); Mean Corpuscular Hgb Conc. 32.9 g/dL (32.0-36.0); Mean Corpuscular Volume 87.8 fL (80.0-100.0); Monocytes # (auto) 0.2 10 ^3/uL (0-1.3); Monocytes % (auto) 3.8 % (0.0-12.0); Neutrophils # (auto) 4.8 10 ^3/uL (1.6-8.6); Neutrophils % (auto) 82.5 % (37.0-80.0); Nucleated Red Blood Cells % 0.2 %; Platelet Count (auto) 230 10^3/uL (140-450); Red Blood Cells 4.22 10^6/uL (4.0-5.20); White Blood Cell 5.8 10^3/uL (4.4-10.8)
[2025-01-20 07:28] LABS: Alanine Aminotransferase 17 U/L (7-40); Alkaline Phosphatase 105 U/L (46-116); Anion Gap 7 (5-15); Aspartate Aminotransferase 21 U/L (13-40); Blood Urea Nitrogen 15 mg/dL (9-23); Calcium 9.2 mg/dL (8.7-10.4); Carbon Dioxide 25 mmol/L (20-31); Chloride 104 mmol/L (98-107); Glucose 97 mg/dL (74-106); Potassium 4.4 mmol/L (3.5-5.1); Sodium 136 mmol/L (136-145)
[2025-01-20 07:29] LABS: Albumin 3.6 g/dL (3.2-4.8); Total Protein 5.7 g/dL (5.7-8.2)
[2025-01-20 07:30] LABS: Bilirubin, Total 0.5 mg/dL (0.2-1.0)
--- NOTE | 2025-01-20 08:03 | DVHPN2 ---
Progress Note Date Seen: January 20, 2025 Medical Necessity Reason Pt with a Central, PICC or Fol: No Subjective Patient reports: No new complaints Objective vital signs Vital Sign Date Time Temp Pulse Resp B/P (MAP) Pulse Ox O2 Delivery O2 Flow Rate FiO2 01/20/25 06:40 64 20 98 01/20/25 05:00 97.9 111/59 (76) 97.9 01/19/25 20:00 Nasal Cannula* 2 28 Total Intake and Output 01/19/25 01/19/25 01/20/25 15:00 23:00 07:00 Intake Total 100 ml 50 ml 300 ml Output Total 320 ml Balance 100 ml 50 ml -20 ml medications Current Medications Medications Dose Ordered Sig/Maggi Route Start Time Stop Time Status Last Admin Dose Admin Diphenhydramine HCl 25 mg Q4HP PRN IV 01/19/25 13:30 Ondansetron HCl 4 mg Q4HP PRN IV 01/19/25 13:30 Ketorolac Tromethamine 15 mg Q6HP PRN IV 01/19/25 13:30 01/24/25 13:29 Lactated Ringer's 1,000 ml @ 100 mls/hr Q10H IV 01/19/25 13:30 01/19/25 23:52 100 MLS/HR Acetaminophen 650 mg Q6HP PRN PO 01/19/25 13:30 Oxycodone/ Acetaminophen 1 tab Q4HP PRN PO 01/19/25 13:30 01/20/25 05:32 1 TAB Hydromorphone HCl 1 mg Q2HP PRN IV 01/19/25 13:30 Docusate Sodium 100 mg Q12HR PO 01/19/25 22:00 Enoxaparin Sodium 30 mg Q12HR SC 02/19/25 10:00 Future hold Nitroglycerin 0.4 mg Q5MINP PRN SL 01/19/25 13:30 Morphine Sulfate 2 mg Q30M PRN IV 01/19/25 13:30 Examination: GENERAL:Normal, MSK:Abnormal laboratory and microbiology Laboratory Tests 01/20/25 05:49 Test 01/20/25 05:49 Range/Units Serum Glucose 97 74-106 mg/dL Problem List/Assessment/Plan Problem List/Assessment/Plan 79 year old female who is s/p Left TKA POD 1 1. Pain control 2. WBAT LLE with use of walker 3. CPM as ordered 4. Physical therapy 5. DVT ppx 5. d/c planning for home tomorrow Plan discussed with: Patient My Orders My Orders Orders - ERICKSON ACUÑA NP Procedure Category Date Status Time Admit ADMIT 01/19/25 Transmitted 13:21 Patient Condition COMORDER 01/19/25 Transmitted Stable 13:21 L Knee 3v Xray XY 01/19/25 Resulted 13:21 Regular Diet DIET 01/19/25 Transmitted Lunch Vital Signs MARY 01/19/25 In Process 13:21 Weight-Bearing MARY 01/19/25 In Process Restrictions 13:21 Lactated Ringer's PHA 01/19/25 In Process 13:30 Acetaminophen Tablet PHA 01/19/25 In Process (Tylenol Tablet) 13:30 Oxycodone W/ Acet PHA 01/19/25 In Process 5/325mg Tab (Percocet 13:30 Hydromorphone PHA 01/19/25 In Process Injection (Dilaudid 13:30 Docusate Sodium PHA 01/19/25 In Process Capsule (Colace 22:00 CPM PT 01/19/25 Transmitted 13:21 Pt Request For Service PT 01/19/25 Logged 13:21 Call/Page MARY 01/19/25 In Process Hospitalist/Atten Fo 13:21 Cpm Machine To MARY 01/19/25 In Process Operative Leg 13:21 Incentive Spirometry ORDERS 01/19/25 Transmitted 13:21 Nitroglycerin PHA 01/19/25 In Process Sublingual (Ntrostat 13:30 Morphine Sulfate PHA 01/19/25 In Process Injection 13:30 Stat Ekg For Chest MARY 01/19/25 In Process Pain 13:21 Notify Of Changes MARY 01/19/25 In Process From Base 13:21 Lathe Set Up Operator For MARY 01/19/25 In Process 24 Hours 13:21 Emergency Dysrhythmia MARY 01/19/25 In Process Protocol 13:21 Rhythm Strips Once MARY 01/19/25 In Process Every Shift 13:21 Oxygen By Nasal RT 01/19/25 Transmitted Cannula 13:21 * Hospitalist Consult CONS 01/19/25 Transmitted Enoxaparin Sodium PHA 02/19/25 In Process (Lovenox) 10:00 Date of Service: January 20, 2025 Billing Provider: AMANUEL YANG MD Common Visit Codes: NOT BILLABLE ERICKSON ACUÑA NP January 20, 2025 08:03
--- NOTE | 2025-01-20 16:33 | DVHINCON2 ---
Date Seen: January 20, 2025 Referring Physician ORTHOPEDIC SURGERY. Reason for Consultation MEDICAL MANAGEMENT. History of Present Illness 79-YEAR-OLD FEMALE WITH A KNOWN HISTORY OF HYPERTENSION, KNOWN HISTORY OF RIGHT TOTAL KNEE ARTHROPLASTY IN THE PAST PRESENTED TO THE HOSPITAL FOR ELECTIVE P ROCEDURE FOR LEFT TOTAL KNEE. PATIENT IS CURRENTLY DENIES ANY CHEST PAIN SHORTNESS A BREATH FEVERS CHILLS OR ANY CONCERN. Past Medical History HYPERTENSION Past Surgical History STATUS POST RIGHT TOTAL KNEE ARTHROPLASTY. Family History: Cardiovascular disease G8 FATHER, FHx: melanoma G8 MOTHER, Allergies: Coded Allergies: NO KNOWN ALLERGIES (Unverified , 07/14/20) Home Meds Active Scripts Aspirin (Aspir-Low) 81 Mg Tab, 81 MG PO BIDWM for 14 Days, #28 TAB Prov:LITZY GARCIA MD 07/22/24 Naloxone HCl (Narcan) 4 Mg/0.1 Ml Spr, 4 MG NA APPLICATION CHEMIST, #2 SPRAY Prov:LITZY GARCIA MD 07/22/24 Reported Medications Tocopheryl Acetate, Dl-Alpha ( (Vitamin E) 90 Mg Cap, 90 MG PO DAILY, CAP 01/15/25 Glucosamine Hydrochloride (GLUCOSAMINE) 750 Mg Tab, 750 MG PO DAILY, TAB 01/15/25 Losartan Potassium (Losartan Potassium) 25 Mg Tab, 25 MG PO DAILY, TAB 06/15/23 Calcium Carbonate (Calcium 600) 600 Mg Tab, 600 MG PO BID, TAB 07/14/20 Multiple Vitamin (Multivitamins) Tab, 1 TAB PO DAILY, #90 TAB 3 Refills 07/14/20 Current Medications Current Medications Medications (Trade) Dose Ordered Sig/Maggi Route PRN Reason Start Time Stop Time Status Last Admin Docusate Sodium (Colace Capsule) 100 mg Q12HR PO 01/19/25 22:00 01/20/25 08:51 Enoxaparin Sodium (Lovenox) 30 mg Q12HR SC 02/19/25 10:00 Future hold Review of Systems TWELVE REVIEW OF SYSTEM ARE NEGATIVE BESIDES MENTIONED ABOVE. Vital Signs Vital Signs Date Time Temp Pulse Resp B/P (MAP) Pulse Ox O2 Delivery O2 Flow Rate FiO2 01/20/25 14:40 78 20 90 01/20/25 08:30 97.7 102/53 (69) 97.7 01/20/25 08:00 Nasal Cannula* 2 28 Physical Exam HEENT PUPILS ARE REACTIVE NECK IS SUPPLE CV IS S1-S2 REGULAR RATE AND RHYTHM RESPIRATORY DIMINISHED BREATH SOUNDS BASES GI POSITIVE BOWEL SOUND EXTREMITY NO EDEMA SALON STYLIST NO MOTOR DEFICIT Labs/Diagnostic Data Labs Test 01/20/25 05:49 Range/Units White Blood Count 5.8 4.4-10.8 10^3/uL Red Blood Count 4.22 4.0-5.20 10^6/uL Hemoglobin 12.2 12.2-16.2 g/dL Hematocrit 37.1 36.0-46.0 % Mean Corpuscular Volume 87.8 80.0-100.0 fL Mean Corpuscular Hemoglobin 28.9 28.0-32.0 pg Mean Corpuscular Hemoglobin Concent 32.9 32.0-36.0 g/dL Red Cell Distribution Width 15.0 H 11.8-14.3 % Platelet Count 230 140-450 10^3/uL Mean Platelet Volume 7.8 6.9-10.8 fL Neutrophils (%) (Auto) 82.5 H 37.0-80.0 % Lymphocytes (%) (Auto) 8.0 L 10.0-50.0 % Monocytes (%) (Auto) 3.8 0.0-12.0 % Eosinophils (%) (Auto) 5.4 0.0-7.0 % Basophils (%) (Auto) 0.3 0.0-2.0 % Neutrophils # (Auto) 4.8 1.6-8.6 10 ^3/uL Lymphocytes # (Auto) 0.5 0.4-5.4 10 ^3/uL Monocytes # (Auto) 0.2 0-1.3 10 ^3/uL Eosinophils # (Auto) 0.3 0-0.8 10 ^3/uL Basophils # (Auto) 0 0-0.2 10 ^3/uL Nucleated Red Blood Cells 0.2 % Sodium Level 136 136-145 mmol/L Potassium Level 4.4 3.5-5.1 mmol/L Chloride Level 104 98-107 mmol/L Carbon Dioxide Level 25 20-31 mmol/L Anion Gap 7 5-15 Blood Urea Nitrogen 15 9-23 mg/dL Creatinine 0.75 0.550-1.02 mg/dL Glomerular Filtration Rate Calc 81 >90 mL/min BUN/Creatinine Ratio 20.0 10.0-20.0 Serum Glucose 97 74-106 mg/dL Calcium Level 9.2 8.7-10.4 mg/dL Total Bilirubin 0.5 0.2-1.0 mg/dL Aspartate Amino Transferase (AST) 21 13-40 U/L Alanine Aminotransferase (ALT) 17 7-40 U/L Alkaline Phosphatase 105 46-116 U/L Total Protein 5.7 5.7-8.2 g/dL Albumin 3.6 3.2-4.8 g/dL Assessment 79-YEAR-OLD FEMALE WITH A KNOWN HISTORY OF HYPERTENSION, KNOWN HISTORY OF RIGHT TOTAL KNEE ARTHROPLASTY PRESENTED TO THE HOSPITAL FOR ELECTIVE PROCEDURE FOR LEFT TOTAL KNEE DEGENERATIVE JOINT DISEASE. 1. HYPERTENSION CONTROLLED 2. LEFT KNEE DEGENERATIVE JOINT DISEASE STATUS POST LEFT TOTAL KNEE ARTHROPLASTY 2. PREVIOUS HISTORY OF RIGHT TOTAL KNEE ARTHROPLASTY -PAIN MEDS NEEDED, PT EVALUATION AND TREATMENT -FOLLOW UP ORTHOPEDICS FOR DISCHARGE PLAN. Plan discussed with: Patient Date of Service: January 20, 2025 Billing Provider: LITZY GARCIA MD Common Visit Codes: NOT BILLABLE LITZY GARCIA MD January 20, 2025 16:33
[2025-01-21] VITALS (8 sets, daily range): BP systolic 126–172; BP diastolic 48–72; PULSE 72–91; RESP 17–21; TEMP 97.4–98.3; O2SAT 93–96
--- NOTE | 2025-01-21 08:18 | DVHDS2 ---
Discharge Summary Date of Admission January 19, 2025 at 13:21 Date of Discharge: January 21, 2025 Wounds: You will likely have a gel-type dressing over your wound, you may keep this on for 7-14 days after leaving the hospital until your first post-op visit, unless it becomes soiled or your skin becomes irritated. If a wound vac dressing is placed on your knee this is to be left in place for one week and will be changed as needed. After your remove the dressing or wound vac, the home health nurse may place clean dry dressing over your wound. Keep wound covered, clean and dry for two weeks. 2. [place] will be removed during your initial post-op visit. If you have concerns about our wound, please call the office immediately. If nervous about staple removal can take pain pill one hour prior to appointment. 3. If there is drainage from your wound, change the dressing daily until it stops. If drainage lasts more than 10 days, call our office. 4. Low grade (up to 100 degrees) fever is common for the first week after surgery. You should take your temperature daily. If you have fevers of 101 or more, please call the office. Labs/Diagnostic Data: Laboratory Results Test 01/20/25 05:49 White Blood Count 5.8 10^3/uL (4.4-10.8) Red Blood Count 4.22 10^6/uL (4.0-5.20) Hemoglobin 12.2 g/dL (12.2-16.2) Hematocrit 37.1 % (36.0-46.0) Mean Corpuscular Volume 87.8 fL (80.0-100.0) Mean Corpuscular Hemoglobin 28.9 pg (28.0-32.0) Mean Corpuscular Hemoglobin Concent 32.9 g/dL (32.0-36.0) Red Cell Distribution Width 15.0 % (11.8-14.3) Platelet Count 230 10^3/uL (140-450) Mean Platelet Volume 7.8 fL (6.9-10.8) Neutrophils (%) (Auto) 82.5 % (37.0-80.0) Lymphocytes (%) (Auto) 8.0 % (10.0-50.0) Monocytes (%) (Auto) 3.8 % (0.0-12.0) Eosinophils (%) (Auto) 5.4 % (0.0-7.0) Basophils (%) (Auto) 0.3 % (0.0-2.0) Neutrophils # (Auto) 4.8 10 ^3/uL (1.6-8.6) Lymphocytes # (Auto) 0.5 10 ^3/uL (0.4-5.4) Monocytes # (Auto) 0.2 10 ^3/uL (0-1.3) Eosinophils # (Auto) 0.3 10 ^3/uL (0-0.8) Basophils # (Auto) 0 10 ^3/uL (0-0.2) Nucleated Red Blood Cells 0.2 % Sodium Level 136 mmol/L (136-145) Potassium Level 4.4 mmol/L (3.5-5.1) Chloride Level 104 mmol/L (98-107) Carbon Dioxide Level 25 mmol/L (20-31) Anion Gap 7 (5-15) Blood Urea Nitrogen 15 mg/dL (9-23) Creatinine 0.75 mg/dL (0.550-1.02) Glomerular Filtration Rate Calc 81 mL/min (>90) BUN/Creatinine Ratio 20.0 (10.0-20.0) Serum Glucose 97 mg/dL (74-106) Calcium Level 9.2 mg/dL (8.7-10.4) Total Bilirubin 0.5 mg/dL (0.2-1.0) Aspartate Amino Transferase (AST) 21 U/L (13-40) Alanine Aminotransferase (ALT) 17 U/L (7-40) Alkaline Phosphatase 105 U/L (46-116) Total Protein 5.7 g/dL (5.7-8.2) Albumin 3.6 g/dL (3.2-4.8) Other Laboratory Tests 01/20/25 05:49 Brief Hx & Hospital Course: s/p left total knee arthroplasty Condition at Discharge: Good Final Diagnosis/Problems List Left knee osteoarthritis, history of patella fracture Discharge Disposition: Home with Health Services Discharge Instruct/Medications Diet: See Comment Diet comment: may advance diet as tolerated, drink plenty of fluids. avoid alcohol while taking narcotics Activity: See Comment Activity comment: 1. You can bear as much weight as you tolerate on your knee unless specifically instructed otherwise. You may use the walking aid which you were discharged with and switch to a cane whenever you feel comfortable doing so. You should use an assistive device until you can walk comfortably without it. Keep in mind that every patient moves at their own speed of recovery so take your time. 2. A physical therapist will visit you at home. 3. Use CPM machine as instructed (6 hours a day) and increase flexion by 5 degrees daily. 4. High impact activity such as jumping, aerobics, tennis, and skiing are not permitted during the first 3 months after surgery. These activities can contribute to accelerated wear and should be done with caution after this time. Discuss this with your surgeon if you have questions. 5. Although a bath or whirlpool is NOT permitted during the first 2-3 weeks, you may shower as soon as you get home from the hospital provided there is no wound drainage. Place a dressing or covering over the wound when you shower. 6. Swimming is not permitted until the wound is healed, which typically occurs approximately 3-4 weeks after surgery Follow Up/Referral: 1. Driving is not permitted within the first 2 weeks. 2. Your first postoperative visit will take place 2 weeks after discharge. Please call the office once you are home from the hospital to arrange this appointment. 3. Antibiotic preventative treatment is required before dental or other invasive procedures. Please ask your surgeon about this at your first postoperative visit. If you experience chest pain, shortness of breath or severe painful calf swelling, go to the nearest emergency room to be evaluated. Please call our office once your situation is stabilized. Medications: 1. You will be discharged with pain medication, a blood thinner (unless you were previously on a blood thinner prior to surgery) and stool softener. Please follow the instructions regarding these medications as provided by your nurse at the hospital upon discharge. 2. Blood clots in the leg are a known complication of surgery. It is very important that you take the medication to protect against clots. Depending on what you are discharged on typically it is Lovenox 40mg daily for 2 weeks or Aspirin 81mg twice daily for 4 weeks. After you finish this, you should then take baby Aspirin (81mg) once daily for 2 weeks. 3. You should restart all of your prescription medications once discharged from the hospital/surgery center unless specifically instructed otherwise. 4. Herbal supplements may be restarted 2 weeks after surgery. 5. If you have been given Coumadin as a blood thinner, please follow up with your electrical logger during the first two weeks after surgery to review medications and overall medical well-being. 6. Please note that narcotic pain medication may cause constipation. Please remember to take stool softeners (Colace) when using narcotics to help reduce the change of constipation. You should not use alcohol together with narcotic medication. Discharge Statement: "Patient was advised to return to the ER or call 911 if any headaches, dizziness, shortness of breath, chest pain, abdominal pain, bleeding, fevers, or worsening of medical condition. Patient was counseled about treatment plan, medications, possible side effects, patientverbalized understanding. All questions were answered to the best of my ability. This discharge took greater then 30 minutes in planning, reviewing documentation, counseling the patient, and discussing with other team members." ASSESSMENT ASSESSMENT Assessment Left knee osteoarthritis, history of patella fracture ERICKSON ACUÑA NP January 21, 2025 08:18
[2025-01-22 01:00] VITALS: BP 175/79; PULSE 87; RESP 19; TEMP 97.3; O2SAT 94
[2025-01-22 05:00] VITALS: BP 153/68; PULSE 76; RESP 18; TEMP 97.5; O2SAT 94
[2025-01-22 08:00] VITALS: PULSE 86; RESP 18; O2SAT 96
[2025-01-22 08:17] VITALS: BP 155/56; PULSE 84; RESP 18; TEMP 98.3; O2SAT 96
[2025-02-19] MEDS ORDERED: ENOXAPARIN SOD 30 MG/0.3 ML SYRINGE SC SCH (10:00)
== END 2025-01-22 09:15 | disposition home health service (06) | DRG 470 ==
LOC: SUR 07:57 → OVERFLOW 13:21 → TELE-CENTR 17:34 → CENTRAL 01-21 23:38
PROVIDERS: ADMIT Nurse Practitioner; ATTEND Orthopaedic Surgery Adult Reconstructive Orthopaedic Surgery
PROC: 8E0YXBZ Computer Assisted Procedure of Lower Extremity (ICD-10-PCS; 2025-01-19)
PROC: 0SRD0J9 Replacement of Left Knee Joint with Synthetic Substitute, Cemented, Open Approach (ICD-10-PCS; principal; 2025-01-19 11:28)
DX: M17.12 Unilateral primary osteoarthritis, left knee (principal); I10 Essential (primary) hypertension; M21.00 Valgus deformity, not elsewhere classified, unspecified site; K21.9 Gastro-esophageal reflux disease without esophagitis; Z96.651 Presence of right artificial knee joint; Z80.8 Family history of malignant neoplasm of other organs or systems; Z82.49 Family history of ischemic heart disease and other diseases of the circulatory system; Z79.82 Long term (current) use of aspirin; Z79.899 Other long term (current) drug therapy; Z87.440 Personal history of urinary (tract) infections
CPT/HCPCS: 36415; 73562; 80053; 85025; 86850; 86900; 86901; 97110; 97116; 97163; 97530; C1713; G0378; J0131; J2250; J2405; J2704; J3490